=== PATIENT | female | born 1975 | race Caucasian/White ===

== ENCOUNTER 2018-05-02 02:06 | Emergency (ER) | payer OTHER ==
[2018-05-02] MEDS ORDERED: ACETAMINOPHEN 1000 MG/100 ML VIAL (NON FORMULARY) IVPB ONE (02:34)
[2018-05-02] MEDS ORDERED: AMPICILLIN NA/SULBACTAM NA 3 GM in SODIUM CHLORIDE 100 ML IVPB ONE (02:37)
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
[2018-05-02] MEDS ORDERED: VANCOMYCIN 1 GM in D5W (PRE-DOCKED) 1,000 MG/250 ML IVPB ONE (02:38)
--- NOTE | 2018-05-02 02:46 | PDOC ---
History of Present Illness - General Stated Complaint: DOG BITE Time Seen by Provider: 05/02/18 02:25 History Source: Patient Exam Limitations: No Limitations - History of Present Illness Initial Comments: 05/02/18 02:40 Pt is a 43yo F with PMH of HTN presenting to ED with complaint of dog bite. Pt has two ayesha knowles mix dogs who were fighting. The youngest bit pt on the R upper arm about 1 hour ago. She has never been bit before. Rabies vaccination status is not up to date. Pt endorses pain to the R upper arm. Is able to move extremity but it is limited due to pain. She denies fevers, chills, chest pain, sob, abdominal pain, n/v/d, headaches. Denies history of HIV PMH: htn PSH: none Meds: amlodipine Allergies: nkda Social: denies. Past History - Past Medical History Allergies/Adverse Reactions: Allergies Allergy/AdvReac Type Severity Reaction Status Date / Time No Known Allergies Allergy Verified 09/18/11 14:13 Home Medications: Ambulatory Orders Amox-Tr/K Cl [Augmentin - 875Mg Tablet] 1 tab PO BID #20 tablet 05/02/18 - Suicide/Smoking/Psychosocial Hx Smoking Status: No Smoking History: Never smoked Years of Tobacco Use: 0 Number of Cigarettes Smoked Daily: 0 Review of Systems - Review of Systems Constitutional: No: Chills, Fever HEENTM: No: Symptoms Reported Respiratory: No: Symptoms reported Cardiac (ROS): No: Symptoms Reported ABD/GI: No: Symptoms Reported : No: Symptoms Reported Musculoskeletal: Yes: See HPI, Muscle Pain (R upper arm), Other Integumentary: Yes: See HPI, Other (bite wound with swelling in RUE) Neurological: No: Numbness, Paresthesia, Tingling, Weakness *Physical Exam - Physical Exam General Appearance: Yes: Nourished, Appropriately Dressed, Moderate Distress HEENT: positive: EOMI, CHOLO Neck: positive: Trachea midline, Supple. negative: Lymphadenopathy (R), Lymphadenopathy (L) Respiratory/Chest: positive: Lungs Clear Cardiovascular: positive: Regular Rhythm, Regular Rate, S1, S2. negative: Edema , JVD, Murmur Vascular Pulses: Carotid (R): 2+, Carotid (L): 2+, Dorsalis-Pedis (R): 2+, Doralis-Pedis (L): 2+ Gastrointestinal/Abdominal: positive: Normal Bowel Sounds, Soft. negative: Rebound, Tenderness Musculoskeletal: negative: CVA Tenderness Extremity: positive: Normal Capillary Refill. negative: Swelling, Calf Tenderness Integumentary: positive: Normal Color, Dry, Warm, Other (hematoma on R upper arm with puncture wound actively bleeding. ttp. 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 Pt has two ayesha knowles mix dogs who were fighting. The youngest bit pt on the R upper arm about 1 hour ago. She has never been bit before. Rabies vaccination status is not up to date. Pt endorses pain to the R upper arm. Is able to move extremity but it is limited due to pain. She denies fevers, chills, chest pain, sob, abdominal pain, n/v/d, headaches. Denies history of HIV Vitals: PE: Deep puncture wound to R upper inner arm with hematoma. Full ROM. peripheral pulses intact. warm dry skin. -cbc, cmp, serum , blood cultures, coags, t+s -IV tylenol, boostrix, unasyn, vancomycin -CTA RUE 05/02/18 03:12 per pharmacy, no Unasyn. Giving Ancef. 05/02/18 06:31 3.5 x 2.6 x 1.7 cm acute hematoma in subcutaneous soft tissues of distal anteromedial right upper arm, consistent with history of dog bite. Adjacent fat stranding and small soft tissue emphysema. Patent main arteries and branches of visualized portion of right upper extremity. No pseudoaneurysm or active contrast extravasation. No acute fracture. No radiodense foreign body. Pt is afebrile and hemodynamcially stable. Will dc with Rx for abx. follow up in 2 days for wound check. given return precautions. *DC/Admit/Observation/Transfer Diagnosis at time of Disposition: Dog bite Qualifiers: Encounter type: initial encounter Qualified Code(s): W54.0XXA - Bitten by dog, initial encounter - Discharge Dispostion Disposition: HOME Condition at time of disposition: Good Decision to Admit order: No - Prescriptions Prescriptions: Amox-Tr/K Cl [Augmentin - 875Mg Tablet] 1 tab PO BID #20 tablet - Referrals - Patient Instructions Printed Discharge Instructions: DI for Animal Bites Additional Instructions: You were seen in the emergency room after a dog bite. The blood vessels are intact. You do have a collection of blood in the arm which will heal on its own. You received antibiotics here and a Tetanus shot which is good for 10 years. A prescription was sent to your pharmacy. Please take as directed. Come back to the emergency room in 2 days for a wound check. You can apply ice pack to the area to prevent swelling. You can take ibuprofen or Tylenol as needed for pain. Keep the area clean and dry, use only water and mild soap to clean. Cover with gauze. You should also make an appointment with your doctor this week as well. Come back to the emergency room if swelling gets worse, the arm feels hot, the arm looks more red, you develop fever, you are unable to move your arms or fingers, the arm appears pale, you have worsening pain or if any new concerning symptom develops. Thank you - Post Discharge Activity Forms/Work/School Notes: Back to Work
[2018-05-02] MEDS ORDERED: DIPHTH,PERTUSS(ACELL),TET 0.5 ML DISP.SYRIN IM ONE ×2 (02:49→03:08)
[2018-05-02 02:57] LABS: BASO % 0.4 % (0-2.0); EOS % 0.6 % (0-4.5); HEMATOCRIT 43.4 % (32.4-45.2); HEMOGLOBIN 14.9 GM/dL (10.7-15.3); LYMPH % 17.6 % (8-40); MCH 29.4 pg (25.7-33.7); MCHC 34.2 g/dl (32.0-36.0); MEAN PLT VOLUME 8.6 fl (7.5-11.1); MONO % 6.4 % (3.8-10.2); PLATELET COUNT 241 K/MM3 (134-434); RBC 5.05 M/mm3 (3.60-5.2); WHITE BLOOD COUNT 13.1 K/mm3 (4.0-10.0)
[2018-05-02] MEDS ORDERED: ACETAMINOPHEN INJECTION 100 ML IVPB ONE (03:07)
[2018-05-02] MEDS ORDERED: VANCOMYCIN 1 GRAM (PRE-DOCKED) 1,000 MG/250 ML BAG IVPB ONE (03:07)
[2018-05-02 03:10] LABS: INR 0.96 (0.83-1.09); PROTHROMBIN TIME (PATIENT) 11.3 SEC (9.7-13.0)
[2018-05-02] MEDS ORDERED: CEFAZOLIN 1 GM in DEXTROSE 5%-WATER - 50 ML IVPB ONE (03:11)
[2018-05-02 03:12] LABS: ACTIVATED PTT 30.8 SECONDS (25.2-36.5)
[2018-05-02] MEDS ORDERED: CEFAZOLIN 1 GM/D5W 1 GM/50 ML BAG ONE (03:12)
[2018-05-02 03:41] LABS: ALBUMIN 4.3 g/dl (3.4-5.0); ALK PHOS 91 U/L (45-117); ANION GAP 8 MMOL/L (8-16); BLOOD UREA NITROGEN 11 mg/dL (7-18); CALCIUM 8.5 mg/dL (8.5-10.1); CHLORIDE 106 mmol/L (98-107); CO2 25 mmol/L (21-32); CREATININE 0.7 mg/dL (0.55-1.3); GLUCOSE,RANDOM 123 mg/dL (74-106); POTASSIUM 3.6 mmol/L (3.5-5.1); SGOT/AST 15 U/L (15-37); SGPT/ALT 25 U/L (13-61); SODIUM 139 mmol/L (136-145); TOT PROT 7.8 g/dl (6.4-8.2)
[2018-05-02 03:42] LABS: BILIRUBIN,TOTAL 0.3 mg/dL (0.2-1)
[2018-05-02 04:29] VITALS: BP 134/85; PULSE 78; TEMP 98.3; BMI 28.5
== END 2018-05-02 06:52 | disposition home or self-care (01) ==
LOC: JER 02:06
PROC: 3E0234Z Introduction of Serum, Toxoid and Vaccine into Muscle, Percutaneous Approach (ICD-10-PCS; principal; 2018-05-02)
PROC: 3E03329 Introduction of Other Anti-infective into Peripheral Vein, Percutaneous Approach (ICD-10-PCS; 2018-05-02)
PROC: 3E03329 Introduction of Other Anti-infective into Peripheral Vein, Percutaneous Approach (ICD-10-PCS; 2018-05-02)
PROC: 3E033NZ Introduction of Analgesics, Hypnotics, Sedatives into Peripheral Vein, Percutaneous Approach (ICD-10-PCS; 2018-05-02)
DX: S41.151A Open bite of right upper arm, initial encounter (principal); W54.0XXA Bitten by dog, initial encounter; Y93.K9 Activity, other involving animal care; Y92.038 Other place in apartment as the place of occurrence of the external cause; Y99.8 Other external cause status
CPT/HCPCS: 36415; 73206-TC-RT; 80053; 84703; 85025; 85610; 85730; 86850; 86900; 86901; 87040; 90715; 99282-25; J0131

== ENCOUNTER 2018-05-10 13:48 | Emergency (ER) | payer OTHER ==
[2018-05-10 13:58] VITALS: BP 146/89; PULSE 107; TEMP 98.7; BMI 28.5
--- NOTE | 2018-05-10 14:33 | PDOC ---
History of Present Illness - General Chief Complaint: Revisit,Wound Recheck Stated Complaint: FOLLOW UP TO CHECK DOG BITE Time Seen by Provider: 05/10/18 14:22 - History of Present Illness Initial Comments: 05/10/18 14:27 43-year-old female presents for evaluation after dog bite. She was written by her dog a few days ago placed on Augmentin and the area on her arm where she was bitten has become increasingly swollen and painful. She has no systemic symptoms. Past History - Past Medical History Allergies/Adverse Reactions: Allergies Allergy/AdvReac Type Severity Reaction Status Date / Time No Known Allergies Allergy Verified 05/10/18 13:56 Home Medications: Ambulatory Orders Amox-Tr/K Cl [Augmentin - 875Mg Tablet] 1 tab PO BID #20 tablet 05/02/18 COPD: No - Suicide/Smoking/Psychosocial Hx Smoking Status: No Smoking History: Never smoked Years of Tobacco Use: 0 Number of Cigarettes Smoked Daily: 0 Review of Systems - Review of Systems Constitutional: No: Chills, Fever, Malaise, Night Sweats Integumentary: Yes: See HPI, Lesions *Physical Exam - Vital Signs Last Vital Signs Temp Pulse Resp BP Pulse Ox 98.7 F 107 H 18 146/89 100 05/10/18 13:56 05/10/18 13:56 05/10/18 13:56 05/10/18 13:56 05/10/18 13:56 - Physical Exam Comments: 05/10/18 14:28 There is an indurated firm nonfluctuant area on the inside of her right upper arm without erythema. There is mild warmth. 2 puncture wounds at the center of this lesion. The area is about 5 cm circumferentially there are no gross sensorimotor deficits in the right upper extremity Moderate Sedation - Procedure Monitoring Vital Signs: Procedure Monitoring Vital Signs Temperature 98.7 F 05/10/18 13:56 Pulse Rate 107 H 05/10/18 13:56 Respiratory Rate 18 05/10/18 13:56 Blood Pressure 146/89 05/10/18 13:56 O2 Sat by Pulse Oximetry (%) 100 05/10/18 13:56 Medical Decision Making - Medical Decision Making 05/10/18 14:29 Recommended warm compresses, continuation of Augmentin follow up with general surgery in 1-2 days as cannot be incised and drained at this point. *DC/Admit/Observation/Transfer Diagnosis at time of Disposition: Bitten by dog, sequela - Discharge Dispostion Disposition: HOME Condition at time of disposition: Stable Decision to Admit order: No - Referrals Referrals: Corey Thurman MD [Staff Physician] - - Patient Instructions Printed Discharge Instructions: How to Care for a Domestic Animal Bite Additional Instructions: Continue to take the Augmentin as directed. Warm compresses 6-7 times a day. Follow-up with general surgery in 1-2 days for further evaluation and treatment options and return to the emergency room should symptoms worsen or go unresolved. - Post Discharge Activity
== END 2018-05-10 14:39 | disposition home or self-care (01) ==
LOC: JERFT 13:48
DX: S41.151D Open bite of right upper arm, subsequent encounter (principal); W54.0XXD Bitten by dog, subsequent encounter
CPT/HCPCS: 99281-25